=== PATIENT | male | born 1995 | race Two or more races ===

== ENCOUNTER 2023-02-09 23:30 | Emergency (ER) | payer MEDICAID, SELFPAY ==
--- NOTE | ~2023-02-09 | XR_ITS ---
EXAMINATION: XR cervical spine 3V, XR thoracic spine 2V, XR lumbar spine 2-3V CLINICAL INFORMATION: Reason for Exam trauma, pain COMPARISON: None. TECHNIQUE: 3 views of the cervical spine, 2 views of the thoracic spine and 3 views of the lumbar spine FINDINGS: Cervical spine: No acute fracture or traumatic malalignment. Vertebral body heights and alignment maintained. Prevertebral and paraspinal soft tissues unremarkable. Thoracic spine: No acute fracture or traumatic malalignment. Vertebral body heights maintained. Minimal levoconvex thoracic scoliosis. Paraspinal soft tissues unremarkable. Right chest wall infusion port terminates at the superior cavoatrial junction. Lumbar spine: No acute fracture or traumatic malalignment. Mild dextroconvex lumbar scoliosis. Incompletely characterized potential fusion of the left posterior articular pillar at L4-L5. Paraspinal soft tissues unremarkable. Moderate constipation. XR/XR lumbar spine 2-3V IMPRESSION: * No acute fracture or traumatic malalignment. * Incidental findings as described. * Moderate constipation.
--- NOTE | ~2023-02-09 | XR_ITS ---
EXAMINATION: XR cervical spine 3V, XR thoracic spine 2V, XR lumbar spine 2-3V CLINICAL INFORMATION: Reason for Exam trauma, pain COMPARISON: None. TECHNIQUE: 3 views of the cervical spine, 2 views of the thoracic spine and 3 views of the lumbar spine FINDINGS: Cervical spine: No acute fracture or traumatic malalignment. Vertebral body heights and alignment maintained. Prevertebral and paraspinal soft tissues unremarkable. Thoracic spine: No acute fracture or traumatic malalignment. Vertebral body heights maintained. Minimal levoconvex thoracic scoliosis. Paraspinal soft tissues unremarkable. Right chest wall infusion port terminates at the superior cavoatrial junction. Lumbar spine: No acute fracture or traumatic malalignment. Mild dextroconvex lumbar scoliosis. Incompletely characterized potential fusion of the left posterior articular pillar at L4-L5. Paraspinal soft tissues unremarkable. Moderate constipation. XR/XR cervical spine 3V IMPRESSION: * No acute fracture or traumatic malalignment. * Incidental findings as described. * Moderate constipation.
--- NOTE | ~2023-02-09 | XR_ITS ---
EXAMINATION: XR cervical spine 3V, XR thoracic spine 2V, XR lumbar spine 2-3V CLINICAL INFORMATION: Reason for Exam trauma, pain COMPARISON: None. TECHNIQUE: 3 views of the cervical spine, 2 views of the thoracic spine and 3 views of the lumbar spine FINDINGS: Cervical spine: No acute fracture or traumatic malalignment. Vertebral body heights and alignment maintained. Prevertebral and paraspinal soft tissues unremarkable. Thoracic spine: No acute fracture or traumatic malalignment. Vertebral body heights maintained. Minimal levoconvex thoracic scoliosis. Paraspinal soft tissues unremarkable. Right chest wall infusion port terminates at the superior cavoatrial junction. Lumbar spine: No acute fracture or traumatic malalignment. Mild dextroconvex lumbar scoliosis. Incompletely characterized potential fusion of the left posterior articular pillar at L4-L5. Paraspinal soft tissues unremarkable. Moderate constipation. XR/XR thoracic spine 2V IMPRESSION: * No acute fracture or traumatic malalignment. * Incidental findings as described. * Moderate constipation.
[2023-02-09 23:30] VITALS: BP 127/68; PULSE 93; RESP 18; TEMP 36.6; O2SAT 97; BMI 19.4
--- NOTE | 2023-02-10 00:18 | ED.GENADULT ---
HPI - General Adult General Chief complaint: Fall Stated complaint: fall w/ object landing on them Time Seen by Provider: 02/10/23 00:17 Source: patient and RN notes reviewed Limitations: no limitations History of Present Illness HPI narrative: 27-year-old patient presents for evaluation after a fall. Patient reports that a wheel on an electric wheelchair had fallen off. The patient reports that this left wheel had been repaired, and while traveling down the street, the repaired wheel had fallen off. Patient reports falling out of the wheelchair and the chair falling on top of the patient. Denies striking head, no LOC. the incident occurred on February 08. Patient reports mild soreness to the mid back. Not tried any medications. Patient was advised by medical worker to have emergency department evaluation. Patient is wheelchair-bound has minimal sensation to the lower extremities. Related Data Allergies Allergy/AdvReac Type Severity Reaction Status Date / Time azithromycin Allergy Anaphylaxis Verified 02/09/23 23:37 egg Allergy Anaphylaxis Verified 02/09/23 23:37 heparin Allergy Anaphylaxis Verified 02/09/23 23:37 latex Allergy Anaphylaxis Verified 02/09/23 23:37 nitrofurantoin Allergy Anaphylaxis Verified 02/09/23 23:37 Penicillins Allergy Anaphylaxis Verified 02/09/23 23:37 Review of Systems Constitutional: Constitutional: Denies frequent falls Cardiovascular: Cardiovascular: Denies syncope Respiratory: Respiratory: Denies cough Gastrointestinal: Gastrointestinal: Denies abdominal pain Neurologic: Denies syncope and Denies frequent falls Psychiatric: Psychiatric: Denies no additional psychiatric complaints [facility] Social History Social History Advance Directives: No Advance Directives Information Provided: No Physical Exam ED Vital Signs: Vital Signs - 24 hr 02/09/23 23:30 02/10/23 00:39 Temperature 97.9 F 97.8 F Pulse Rate 93 92 Respiratory Rate 18 14 Blood Pressure 127/68 99/67 Pulse Oximetry 97 97 Oxygen Delivery Method Room Air Room Air BMI result Body Mass Index 19.4 Const General: alert, awake and Physically active HENMN Other: Pupils are equal round reactive to light. No obvious contusions noted to the head. Neck Other: Full range of motion without any tenderness to the cervical region. Mild tenderness to the trapezius muscles. No step-offs or crepitus. Resp Effort & Inspection: able to speak in complete sentences Auscultation: clear to auscultation bilaterally Cardio Rate: regular rate Rhythm: regular rhythm Back/Spine/Pelvis Other: Diffuse tenderness to the lower thoracic and upper lumbar region. There is no contusions noted to the posterior trunk. No step-off or crepitus. Course Course Course Narrative: February 10, 2023, 1:25 AM. Reviewed x-rays, no acute process. 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 Patient requesting discharge home. The patient feels comfortable with this plan and will trial Tylenol or ibuprofen if needed. Medical Decision Making Medical Decision Making MDM Narrative: 27-year-old patient presents after a fall out of the wheelchair, complaining of back pain. No evidence of obvious trauma with any contusions or abrasions noted. No new focal deficits. Check x-rays. Differential Diagnosis Differential Diagnoses: The differential diagnosis associated with the presentation includes Fracture Dislocation Contusion Muscle strain Discharge Plan Discharge Clinical Impression: Strain of thoracic back region Fall Qualifiers: Encounter type: initial encounter Qualified Code(s): W19.XXXA - Unspecified fall, initial encounter Patient Disposition: Home, Self-Care Instructions: Muscle Strain (ED), Fall Prevention (ED) Additional Instructions: Rest. Avoid strenuous activity. Preliminary reading of your x-rays do not show any obvious broken bones or acute abnormalities. We will contact you if there are any changes after official radiology readings. You may take Tylenol or ibuprofen available [id number] as directed. Follow-up with your primary care provider. Call this week to schedule a follow-up appointment. Return to the emergency department if you have any worsening of symptoms, or any concerns. Get well soon!
[2023-02-10 00:39] VITALS: BP 99/67; PULSE 92; RESP 14; TEMP 36.6; O2SAT 97
[2023-02-10 02:03] VITALS: BP 108/60; PULSE 79; RESP 18; TEMP 36.6; O2SAT 99
== END 2023-02-10 02:09 | disposition home or self-care (01) ==
PROVIDERS: Emergency Provider Emergency Medicine Emergency Medical Services
DX: S29.012A Strain of muscle and tendon of back wall of thorax, initial encounter (principal); V00.811A Fall from moving wheelchair (powered), initial encounter; M54.50 Low back pain, unspecified; Y93.9 Activity, unspecified; Y92.410 Unspecified street and highway as the place of occurrence of the external cause; Y99.9 Unspecified external cause status
CPT/HCPCS: 72040; 72070; 72100; 99283; 99284

== ENCOUNTER 2024-05-16 13:24 | Emergency (ER) | payer MEDICAID, SELFPAY ==
--- NOTE | ~2024-05-16 | CT_ITS ---
EXAMINATION: CT HEAD WITHOUT CONTRAST (STROKE PROTOCOL) CLINICAL INFORMATION: Stroke protocol. Right facial droop. COMPARISON: None available. TECHNIQUE: Contiguous axial imaging was performed from the skull base to vertex without intravenous administration of contrast. This CT examination was performed using dose optimization techniques as appropriate, variously including the following: *Automated exposure control *Adjustment of mA and/or kV according to patient size (this includes techniques or standardized protocols for targeted exams where dose is matched to indication/reason for exam; i.e. extremities or head) *Use of iterative reconstruction technique FINDINGS: No acute intracranial hemorrhage, mass effect, midline shift, hydrocephalus or herniation. Montano-white matter differentiation is normal. Posterior cranial fossa contents are normal. Sellar/suprasellar region demonstrated no gross masses. Craniocervical junction is intact and normal. No air-fluid levels in the included paranasal sinuses. Tympanic cavities and mastoid cells are aerated. No masses or hematoma is in the intraconal or the extraconal compartments of the orbits. CT/CT head for STROKE IMPRESSION: No acute or structural brain abnormality by CT. Negative. This critical result was discussed with the emergency department physician roofer assistant at 2:05 PM hours on May 16, 2024.. It was ascertained that the content and urgency of the report was understood at the time of direct communication. Electronically signed by: Jessee Mulligan MD 05/16/2024 02:07 PM EDT
--- NOTE | ~2024-05-16 | MR_ITS ---
CLINICAL HISTORY: vision change, L sided parasthesias MR Brain without intravenous contrast Comparison: Head CT from 05/16/2024 Findings: No restricted diffusion acute brain infarction. Small perivascular spaces noted including imaged midbrain and basal ganglia regions. No significant white matter pathology. No midline shift or hydrocephalus. Mild basal ganglia mineralization noted. No definite intra-axial mass by noncontrast imaging. Mild fluid and mucosal thickening of the paranasal sinuses. Trace left mastoid effusion. IMPRESSION: 1. No restricted diffusion acute brain infarction. 2. Normal noncontrast signal of the brain parenchyma. This document has been electronically signed by: Neal Garzon MD on 05/16/2024 21:38:02
[2024-05-16 13:27] VITALS: BP 113/75; PULSE 105; RESP 16; TEMP 36.4; O2SAT 97; BMI 30.3
--- NOTE | 2024-05-16 13:27 | ED_ITS ---
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 He also had R sided headache and felt his L face/arm were tingling. No motor changes. He denies recent trauma or neck manipulation. He has been doing well with no issues. He has no CP/SOB, no recent fevers. He notes he wants to see the eye doctor but PCP referred him here. He has never had ocular migraines before. 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 When asked about IV contrast he reports he had seizures. He states he had a neurological reaction not allergy Onset (ago): hour(s) (14) Last Observed Normal: 00:00 Timing confirmed by: other (self and friend) Location: left arm and other (vision) History of same: No Severity: mild Quality: tingling Relieving factors: none Exacerbating factors: none On Anticoagulants: No Associated symptoms: denies other symptoms Treatments Prior to Arrival: none Related Data Allergies Allergy/AdvReac Type Severity Reaction Status Date / Time azithromycin Allergy Anaphylaxis Verified 05/16/24 13:28 egg Allergy Anaphylaxis Verified 05/16/24 13:28 heparin Allergy Anaphylaxis Verified 05/16/24 13:28 latex Allergy Anaphylaxis Verified 05/16/24 13:28 nitrofurantoin Allergy Anaphylaxis Verified 05/16/24 13:28 Penicillins Allergy Anaphylaxis Verified 05/16/24 13:28 Review of Systems 2 Review of Systems: Constitutional : No Fever, No Chills, No Fatigue ENT/Mouth : No sore throat, No Rhinorrhea Eyes: No Eye Pain, No Swelling, No Redness, pos blurry vision Cardiovascular : No Chest Pain, No SOB, No Dyspnea on Exertion Respiratory : No Cough, No Sputum Gastrointestinal : No Nausea, No Vomiting, No Diarrhea, No abdominal Pain Genitourinary : No Dysuria, No Urinary Frequency, No Hematuria, Musculoskeletal : No joint pain, No Myalgias, No Joint Swelling Skin : No Skin Lesions, No rash Neuro : No Weakness, pos Numbness, No Dizziness, positive Headache Psych : No Anxiety/Panic, No Depression All other systems reviewed and are negative [facility] Past Medical History Attestation statement: The following information was validated with the patient. Source: old records reviewed Medical History Dysautonomia Seizures Coby-Danlos disease Brain injury Social History Social History (Updated 05/16/24 @ 14:25 by Pia Yi DO) Patient Tobacco Use Status: Never used Tobacco Advance Directives: No Advance Directives Information Provided: No Physical Exam 2 Vital Signs: Vital Signs: Last Vital Signs Temp 97.6 F 05/16/24 13:27 Pulse 105 H 05/16/24 13:27 Resp 16 05/16/24 13:27 BP 113/75 05/16/24 13:27 Pulse Ox 97 05/16/24 13:27 O2 Del Method Room Air 05/16/24 13:27 BMI result Body Mass Index 30.3 Appearance: Alert. Oriented X3. No acute distress. Eyes: Pupils equal, round and reactive to light. No nystagmus reports blurred vision in both eyes cloudy, hard to describe. ENT: Pharynx normal. Neck: Normal inspection. Neck supple. CVS: Normal heart rate and rhythm. Pulses normal. Respiratory: No respiratory distress. Breath sounds normal. Abdomen: Soft and non-tender. Skin: Skin warm and dry. Normal skin color. Normal skin turgor. Extremities: No lower extremity edema. No calf ttp Neuro: Oriented X 3. No motor deficit (chronic leg weakness). Can feel my hand but states it feels tingly on L face and L arm/hand. CN2-12 intact Course Course Course Narrative: This is a Rapid Medical Exam performed in triage by Aminah Rubio PA-C. Full HPI, ROS and PE to be performed by primary ED provider. 29yo M w/PMHx traumatic brain injury, wheelchair-bound, deaf, presenting to the ED c/o sudden onset right-sided headache with associated cloudy /blurry vision and left lip /arm numbness at 09:00. States friend's noted a right-sided facial droop. Reports continued blurry vision and numbness at present. Denies anticoagulation use PE: maybe slight right-sided facial droop noted, no other focal weakness Plan: labs, CT head/ CTA for stroke Reevaluation(s) Reevaluation #1: unclear about MRI per patient we are going to see if magnesium helps his symptoms patient now wants MRI of brain - for reported resolved facial droop, parasthesias, blurred vision Medications Administered Discontinued Medications Generic Name Dose Route Start Last Admin Trade Name Vivian PRN Reason Stop Dose Admin Magnesium Sulfate 2 gm in 50 mls @ 25 mls/hr 05/16/24 14:50 05/16/24 16:04 Magnesium Sulfate/H2o IV 05/16/24 16:49 25 mls/hr ONCE ONE Administration Medical Decision Making Medical Decision Making [facility] Narrative: 29 yo male with 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 I do not suspect LVO based off his deficits. I cannot get CTA given seizures. At this time labs, CT head ordered. May need MRI. Possible stroke, has vascular issues but no severe pain or deficits to suggest rupture/dissection Differential Diagnosis Differential Diagnoses: The differential diagnosis associated with the presentation includes parasthesias, TIA, ocular migraine Admission/Observation Consideration of admission/observation: Escalation of care including admission/observation considered signed out pending MRI of brain to Jordyn MEZA Lab Data [facility] Lab Attestation statement: I reviewed the patient's lab results. 05/16/24 14:13 05/16/24 14:13 Labs: Lab Results 05/16/24 Range/Units 14:13 WBC 7.3 (4.8-10.8) X10*3/uL RBC 5.30 (4.60-5.80) X10*6/uL Hgb 14.1 (14.0-18.0) g/dl Hct 42.5 (42.0-52.0) % MCV 80.2 (80.0-98.0) fL MCH 26.6 L (27.0-33.0) pg MCHC 33.2 (31.0-36.0) g/dl RDW 14.8 (11.0-16.0) % Plt Count 309 (160-400) X10*3/uL MPV 9.5 (9.4-12.4) fL Immature Gran % (Auto) 0.3 (0.0-0.4) % Neut % (Auto) 48.0 (45-73) % Lymph % (Auto) 40.1 H (20-40) % Kimble % (Auto) 7.5 (2-11) % Eos % (Auto) 3.0 (0-4) % Baso % (Auto) 1.1 (0-2) % Lymph # (Auto) 2.9 (1.2-4.9) X10*3/uL Kimble # (Auto) 0.6 (0.1-1.2) X10*3/uL Eos # (Auto) 0.2 (0.0-0.4) X10*3/uL Baso # (Auto) 0.1 (0.0-0.2) X10*3/uL Abs Immat Gran (auto) 0.02 (0.00-0.03) X10*3/uL Absolute Neuts (auto) 3.5 (2.0-8.3) x10*3/uL Absolute Nucleated RBC 0.000 (0.0-0.012) X10*3/uL Nucleated RBC % (auto) 0.0 (0.0-0.2) /100WBC Sodium 140 (135-145) mmol/L Potassium 4.0 (3.3-5.1) mmol/L Chloride 107 (96-108) mmol/L Carbon Dioxide 26 (22-29) mmol/L Anion Gap 11 L (12-20) BUN 12 (9-16) mg/dL Creatinine 0.72 (0.5-1.4) mg/dL Estim Creat Clear Calc 158.6 Estimated GFR > 60 Random Glucose 91 (60-115) mg/dL Calcium 9.2 (8.4-10.2) mg/dL Magnesium 1.5 L (1.6-2.6) mg/dL Total Bilirubin 0.7 (0.0-1.0) mg/dL Direct Bilirubin 0.2 (0.0-0.5) mg/dL AST 21 (5-37) U/L ALT 24 (0-40) U/L Alkaline Phosphatase 94 (39-117) U/L Troponin I High Sens < 2.7 (<3.5-35.0) ng/L Total Protein 7.6 (6.5-8.0) g/dL Albumin 4.3 (3.5-5.0) g/dL Independent Interpretation I performed an independent interpretation of an: EKG and CT Scan (normal ) Interpretation: Rate: 85 Rhythm: NSR [place]: left Normal P waves. Normal GABY. Normal QRS complex. ST T wave : no BETH, inverted t waves V1 and V2 qTC: 430 prior studies: no acute ischemia The study has been interpreted contemporaneously by me. . Radiology Impression Discussion of test interpretation with radiology: I have reviewed the radiologist's reading. NIH Stroke Scale Internal: Initial- Upon Arrival Level of Consciousness: Alert Level of Consciousness Questions: Answers both questions correctly Level of Consciousness Commands: Performs both tasks correctly Best Gaze: Normal Visual: No visual loss Facial Palsy: Normal Motor Arm (Right): No drift Motor Arm (Left): No drift Motor Leg (Right): No drift Motor Leg (Left): No drift Limb Ataxia: Absent Sensory: Mild to moderate sensory loss Best Language: No aphasia Dysarthia: Normal Extinction and Inattention: No abnormality Score: 1 Discharge Plan Discharge Clinical Impression: Hypomagnesemia, Facial tingling, Tingling in extremities Patient Disposition: Still a Patient Instructions: Paresthesia (ED), Hypomagnesemia (ED) Print Language: [place] Zealander
--- NOTE | 2024-05-16 13:34 | ECG_ITS ---
Test Reason : stroke Blood Pressure : */* mmHG Vent. Rate : 85 BPM Atrial Rate : 85 BPM P-R Int : 142 ms QRS Dur : 82 ms QT Int : 362 ms P-R-T Axes : 73 -49 25 degrees QTcB Int : 430 ms Normal sinus rhythm Possible Left atrial enlargement Left anterior fascicular block Abnormal ECG No previous ECGs available Referred By: Aminah Rubio Electronically Signed By: Yonis Adam
[2024-05-16 14:16] LABS: MANUAL DIFF FLAG NO
[2024-05-16 14:23] LABS: Basophils Absolute Auto 0.1 X10*3/uL (0.0-0.2); Basophils Percent Auto 1.1 % (0-2); Eosinophils Absolute Auto 0.2 X10*3/uL (0.0-0.4); Hematocrit 42.5 % (42.0-52.0); Hemoglobin 14.1 g/dl (14.0-18.0); Imm Gran Abs Auto 0.02 X10*3/uL (0.00-0.03); Imm Gran Pct Auto 0.3 % (0.0-0.4); Lymphocytes Absolute Auto 2.9 X10*3/uL (1.2-4.9); Lymphocytes Percent Auto 40.1 % (20-40); Mean Corpuscular HGB Conc 33.2 g/dl (31.0-36.0); Mean Corpuscular Hemoglobin 26.6 pg (27.0-33.0); Mean Corpuscular Volume 80.2 fL (80.0-98.0); Mean Platelet Volume 9.5 fL (9.4-12.4); Monocytes Absolute Auto 0.6 X10*3/uL (0.1-1.2); Monocytes Percent Auto 7.5 % (2-11); Neutrophils Absolute Auto 3.5 x10*3/uL (2.0-8.3); Platelet Count 309 X10*3/uL (160-400); Red Cell Distribution Width 14.8 % (11.0-16.0); White Blood Count 7.3 X10*3/uL (4.8-10.8)
[2024-05-16 14:38] LABS: Alanine Aminotransferase 24 U/L (0-40); Albumin Level 4.3 g/dL (3.5-5.0); Alkaline Phosphatase 94 U/L (39-117); Anion Gap 11 (12-20); Aspartate Amino Transferase 21 U/L (5-37); Bilirubin Direct 0.2 mg/dL (0.0-0.5); Bilirubin Total 0.7 mg/dL (0.0-1.0); Blood Urea Nitrogen 12 mg/dL (9-16); Calcium 9.2 mg/dL (8.4-10.2); Carbon Dioxide 26 mmol/L (22-29); Chloride 107 mmol/L (96-108); Creatinine Clr Calc Pharmacy 158.6; Estimated Glomerular Filt Rate > 60; Glucose Random 91 mg/dL (60-115); Magnesium 1.5 mg/dL (1.6-2.6); Sodium 140 mmol/L (135-145); Total Protein 7.6 g/dL (6.5-8.0)
[2024-05-16 14:43] LABS: Troponin-I High Sensitivity < 2.7 ng/L (<3.5-35.0)
[2024-05-16] MEDS: Magnesium Sulfate/H2O 2 GM/50 ML PIGGYBACK IV (16:04)
--- NOTE | 2024-05-16 17:48 | PC.NURSE ---
MRI SCREENING FORM COMPLETED WITH PATIENT
[2024-05-16 18:52] VITALS: BP 93/67; PULSE 81; RESP 20; TEMP 36.7; O2SAT 97
--- NOTE | 2024-05-16 20:50 | PC.NURSE ---
Patient is away for MRI. DERRICK Carnes aware.
[2024-05-16 21:21] VITALS: BP 97/65; PULSE 69; RESP 16; TEMP 36.7; O2SAT 97
[2024-05-16 22:00] VITALS: BP 97/65; PULSE 69; RESP 16; TEMP 36.7; O2SAT 97
== END 2024-05-16 22:00 | disposition home or self-care (01) ==
PROVIDERS: Physician Assistant; Emergency Provider Emergency Medicine; PCP Nurse Practitioner Family
DX: E83.42 Hypomagnesemia (principal); R20.0 Anesthesia of skin; Q79.60 Ehlers-Danlos syndrome, unspecified; H53.8 Other visual disturbances; G90.1 Familial dysautonomia [Riley-Day]; H53.143 Visual discomfort, bilateral; R51.9 Headache, unspecified; R29.701 NIHSS score 1; R29.810 Facial weakness; R94.31 Abnormal electrocardiogram [ECG] [EKG]; Z79.899 Other long term (current) drug therapy
CPT/HCPCS: 36415; 70450; 70551; 80048; 80076; 83735; 84484; 85025; 93005; 96365; 96366; 99284; 99285; J3475

== ENCOUNTER → 2024-05-16 13:32 | Outpatient (BNV) | payer MEDICAID, SELFPAY | PROVIDERS: Emergency Provider Emergency Medicine; PCP Nurse Practitioner Family; Visit Provider Radiology Diagnostic Radiology | DX: H53.9 Unspecified visual disturbance (principal); R20.2 Paresthesia of skin; R29.810 Facial weakness | CPT/HCPCS: 70450; 70551 ==

== ENCOUNTER → 2024-05-16 13:34 | Outpatient (BNV) | payer MEDICAID, SELFPAY | PROVIDERS: Emergency Provider Emergency Medicine; PCP Nurse Practitioner Family; Visit Provider Internal Medicine Cardiovascular Disease | DX: I44.4 Left anterior fascicular block (principal); R94.31 Abnormal electrocardiogram [ECG] [EKG] | CPT/HCPCS: 93010 ==